=== PATIENT | female | born 1975 | race African-American/Black ===

== ENCOUNTER 2016-08-03 18:54 | Emergency (ER) | payer OTHER ==
[~2016-08-03] VITALS: Ht 142.2 cm; Wt 88.0 kg
[2016-08-03 20:38] LABS: ADD MIUA? YES; BILIRUBIN NEGATIVE; BLOOD MODERATE; COLOR YELLOW ((YELLOW)); GLUCOSE (STRIP) NEGATIVE; KETONES NEGATIVE; LEUKOCYTES SMALL; NITRITE NEGATIVE; PROTEIN (STRIP) NEGATIVE; SPECIFIC GRAVITY 1.002 (1.000-1.030); UROBILINOGEN 0.2 MG/DL (0.2-1.0)
[2016-08-03 20:40] LABS: BACTERIA RARE /HPF; EPITHELIAL CELLS 2+ /HPF; MUCUS NONE SEEN /LPF; RED BLOOD CELLS 0-5 /HPF (0-5); WHITE BLOOD CELLS 0-5 /HPF (0-5)
[2016-08-03 20:51] LABS: EOSINOPHIL (%) 2.3 % (0-5); EOSINOPHIL COUNT 0.2 K/uL (0-0.3); HEMATOCRIT 30.8 % (36.0-46.0); IMMATURE GRANULOCYTE (%) 0.3 % (0.0-0.7); LYMPHOCYTE COUNT 1.6 K/uL (1.0-2.8); MCH 28.2 PG (29.0-34.0); MCHC 33.1 G/DL (30.0-36.0); MCV 85.1 FL (83-99); MEAN PLAT.VOLUME 9.3 uM^3 (9.5-12.4); MONOCYTE (%) 9.9 % (3-12); MONOCYTE COUNT 0.8 K/uL (0-0.8); NEUTROPHIL (%) 65.5 % (45-76); PLATELET COUNT 195 K/uL (156-360); RBC DIS.WIDTH-CV 14.6 % (11.8-14.6); RBC DIS.WIDTH-SD 45.3 % (39-53); RED BLOOD COUNT 3.62 M/uL (3.80-5.20); WHITE BLOOD COUNT 7.6 K/uL (4.1-10.2)
[2016-08-03 20:57] LABS: CHLORIDE 113 mEq/L (99-109); POTASSIUM 3.7 mEq/L (3.7-5.4); SODIUM 137 mEq/L (136-147)
[2016-08-03 21:00] LABS: GLUCOSE 85 mg/dL (70-99)
[2016-08-03 21:02] LABS: TOTAL BILIRUBIN 0.2 mg/dL (0.0-1.0)
[2016-08-03 21:03] LABS: ALKALINE PHOSPHATASE 87 IU/L (3-129); GFR ESTIMATE (CALCULATED) 30 mL/min/
[2016-08-03 21:04] LABS: UREA NITROGEN (BUN) 18 mg/dL (9-23)
[2016-08-03 21:08] LABS: ANION GAP 11 MEQ/L (2-14)
[2016-08-03 21:26] LABS: INTERNAL CONTROL VALID? YES; MONOSPOT (MONONUCLEOSIS SEROL) NEGATIVE
[2016-08-03] MEDS ORDERED: ZOFRAN ODT8 MG PO (22:05)
[2016-08-03 22:53] VITALS: BP 119/62
== END 2016-08-03 23:20 | disposition home or self-care (01) ==
LOC: EME → EDBD 18:54 → EME 18:54
PROVIDERS: Emergency Medicine
DX: R11.2 Nausea with vomiting, unspecified (principal); K85.90 Acute pancreatitis without necrosis or infection, unspecified; R53.1 Weakness; Z94.0 Kidney transplant status; F17.200 Nicotine dependence, unspecified, uncomplicated; Z71.6 Tobacco abuse counseling
CPT/HCPCS: 80053; 81003; 83605; 83690; 85025; 86308; 87040; 99281; 99285; J2405; J7030

== ENCOUNTER 2016-10-03 14:53 | Emergency (ER) | payer OTHER ==
[~2016-10-03] VITALS: Ht 142.2 cm; Wt 84.3 kg
[~2016-10-03 14:53] MED LIST: ZOFRAN ODT8 MG PO
[2016-10-03 16:07] LABS: EOSINOPHIL COUNT 0.2 K/uL (0-0.3); HEMATOCRIT 31.3 % (36.0-46.0); IMMATURE GRANULOCYTE (%) 0.3 % (0.0-0.7); INSTRUMENT ABS NEUTROPHIL CT 3.8 K/uL; LYMPHOCYTE COUNT 1.3 K/uL (1.0-2.8); MCH 28.3 PG (29.0-34.0); MCHC 33.5 G/DL (30.0-36.0); MCV 84.4 FL (83-99); MEAN PLAT.VOLUME 10.3 uM^3 (9.5-12.4); MONOCYTE (%) 10.6 % (3-12); MONOCYTE COUNT 0.6 K/uL (0-0.8); NEUTROPHIL (%) 62.9 % (45-76); NEUTROPHIL COUNT 3.8 K/uL (1.8-6.4); PLATELET COUNT 167 K/uL (156-360); RBC DIS.WIDTH-CV 14.7 % (11.8-14.6); RBC DIS.WIDTH-SD 45.1 % (39-53); RED BLOOD COUNT 3.71 M/uL (3.80-5.20)
[2016-10-03 16:16] LABS: PTT 34.5 (25-32)
[2016-10-03 16:17] LABS: INTER. NORMALIZED RATIO 1.7; PROTHROMBIN TIME 17.2 (9.2-11.2)
[2016-10-03 16:23] LABS: CHLORIDE 112 mEq/L (99-109); POTASSIUM 4.1 mEq/L (3.7-5.4); SODIUM 137 mEq/L (136-147)
[2016-10-03 16:26] LABS: GLUCOSE 91 mg/dL (70-99)
[2016-10-03 16:27] LABS: ANION GAP 7 MEQ/L (2-14); TOTAL BILIRUBIN 0.2 mg/dL (0.0-1.0)
[2016-10-03 16:29] LABS: ALKALINE PHOSPHATASE 73 IU/L (3-129); GFR ESTIMATE (CALCULATED) 27 mL/min/
[2016-10-03 16:30] LABS: UREA NITROGEN (BUN) 14 mg/dL (9-23)
[2016-10-03 16:31] LABS: DIRECT BILIRUBIN 0.1 mg/dL (0.0-0.3)
[2016-10-03 17:07] LABS: QUANTITATIVE HCG < 4.0 MIU/ML
[2016-10-03 21:45] VITALS: BP 127/87
== END 2016-10-03 22:15 | disposition home or self-care (01) ==
LOC: EME 14:53
PROVIDERS: Emergency Medicine
DX: R10.31 Right lower quadrant pain (principal); M79.604 Pain in right leg; I12.9 Hypertensive chronic kidney disease with stage 1 through stage 4 chronic kidney disease, or unspecified chronic kidney disease; N18.9 Chronic kidney disease, unspecified; Z94.0 Kidney transplant status; E78.5 Hyperlipidemia, unspecified; Z86.718 Personal history of other venous thrombosis and embolism; Z79.01 Long term (current) use of anticoagulants; F17.200 Nicotine dependence, unspecified, uncomplicated
CPT/HCPCS: 74176; 80048; 80076; 84702; 85025; 85610; 85730; 93971; 99281; 99285; J2405; J7030

== ENCOUNTER 2017-01-12 08:16 | Inpatient (IN) | payer OTHER ==
[~2017-01-12] VITALS: Ht 142.2 cm; Wt 86.0 kg
[2017-01-12 08:53] LABS: EOSINOPHIL (%) 1.1 % (0-5); EOSINOPHIL COUNT 0.1 K/uL (0-0.3); HEMATOCRIT 33.6 % (36.0-46.0); IMMATURE GRANULOCYTE (%) 0.4 % (0.0-0.7); IMMATURE GRANULOCYTE COUNT 0.1 K/uL; INSTRUMENT ABS NEUTROPHIL CT 9.8 K/uL; LYMPHOCYTE COUNT 0.6 K/uL (1.0-2.8); MCH 28.6 PG (29.0-34.0); MCHC 33.3 G/DL (30.0-36.0); MCV 85.9 FL (83-99); MEAN PLAT.VOLUME 9.4 uM^3 (9.5-12.4); MONOCYTE (%) 8.2 % (3-12); MONOCYTE COUNT 0.9 K/uL (0-0.8); NEUTROPHIL (%) 85.1 % (45-76); NEUTROPHIL COUNT 9.8 K/uL (1.8-6.4); PLATELET COUNT 179 K/uL (156-360); RBC DIS.WIDTH-CV 14.2 % (11.8-14.6); RBC DIS.WIDTH-SD 44.7 % (39-53); RED BLOOD COUNT 3.91 M/uL (3.80-5.20); WHITE BLOOD COUNT 11.5 K/uL (4.1-10.2)
[2017-01-12 09:05] LABS: CHLORIDE 113 mEq/L (99-109); POTASSIUM 3.7 mEq/L (3.7-5.4); SODIUM 138 mEq/L (136-147)
[2017-01-12 09:07] LABS: GLUCOSE 123 mg/dL (70-99)
[2017-01-12 09:08] LABS: ANION GAP 11 MEQ/L (2-14)
[2017-01-12 09:11] LABS: GFR ESTIMATE (CALCULATED) 27 mL/min/; UREA NITROGEN (BUN) 12 mg/dL (9-23)
[2017-01-12] MEDS ORDERED: ENVARSUS XR1 MG PO ×2 (10:03→10:04)
[2017-01-12] MEDS ORDERED: PEPCID20 MG PO (10:03)
[2017-01-12] MEDS ORDERED: PRILOSEC20 MG PO (10:05)
[2017-01-12] MEDS ORDERED: CELLCEPT250 MG PO ×2 (10:05)
[2017-01-12] MEDS ORDERED: LAMICTAL25 MG PO (10:06)
[2017-01-12] MEDS ORDERED: REMERON30 M2 PO (10:07)
[2017-01-12] MEDS ORDERED: KEFLEX250 MG PO (10:07)
[2017-01-12] MEDS ORDERED: NEURONTIN300 MG PO (10:07)
[2017-01-12] MEDS ORDERED: COUMADIN1 MG PO (10:08)
[2017-01-12] MEDS ORDERED: COUMADIN5 MG PO (10:08)
[2017-01-12] MEDS ORDERED: ROCALTROL0.25 MCG PO ×2 (10:11→10:13)
[2017-01-12] MEDS ORDERED: RAYOS5 MG PO (10:13)
[2017-01-12] MEDS ORDERED: CARDIZEM CD,CA120 MG PO (10:13)
[2017-01-12] MEDS ORDERED: RISPERDAL0.5 MG PO (10:14)
[2017-01-12] MEDS ORDERED: ZOCOR20 MG PO (10:16)
[2017-01-12 11:02] LABS: LIPASE 30 U/L (1.0-51.0)
[2017-01-12 11:08] VITALS: BP 127/71
[2017-01-12 11:14] LABS: ADD MIUA? YES; BILIRUBIN NEGATIVE; BLOOD MODERATE; COLOR STRAW ((YELLOW)); GLUCOSE (STRIP) NEGATIVE; KETONES NEGATIVE; LEUKOCYTES MODERATE; NITRITE NEGATIVE; PROTEIN (STRIP) 30; SPECIFIC GRAVITY 1.005 (1.000-1.030); UROBILINOGEN 0.2 MG/DL (0.2-1.0)
[2017-01-12 11:16] LABS: BACTERIA RARE /HPF; EPITHELIAL CELLS RARE /HPF; MUCUS TRACE /LPF; RED BLOOD CELLS 0-5 /HPF (0-5); WHITE BLOOD CELLS 20-30 /HPF (0-5)
[2017-01-12 11:27] VITALS: BP 127/71
[2017-01-12 11:55] LABS: INTER. NORMALIZED RATIO 1.4
[2017-01-12 12:08] VITALS: BP 138/70
[2017-01-12 15:06] LABS: C DIFF TOXIN NEGATIVE (NEGATIVE)
[2017-01-12 15:08] LABS: PROBE CHECK PASS; SPECIMEN PROCESSING CONTROL PASS
[2017-01-12 16:33] VITALS: BP 104/55
[2017-01-12 18:14] VITALS: BP 105/63
[2017-01-13] VITALS (7 sets, daily range): BP systolic 92–126; BP diastolic 51–81
[2017-01-13 06:52] LABS: INTER. NORMALIZED RATIO 1.4; PROTHROMBIN TIME 15.3 SEC (10.2-12.9)
[2017-01-13 07:13] LABS: ALKALINE PHOSPHATASE 55 IU/L (3-129); ANION GAP 12 MEQ/L (2-14); CHLORIDE 115 MEQ/L (99-109); GFR ESTIMATE (CALCULATED) 29 mL/min/; POTASSIUM 3.9 MEQ/L (3.7-5.4); SAMPLE HEMOLYSIS CHECK 1; SAMPLE ICTERIC CHECK 0; SAMPLE LIPEMIA CHECK 0; SODIUM 136 MEQ/L (136-147); TOTAL BILIRUBIN 0.4 MG/DL (0.0-1.0); UREA NITROGEN (BUN) 13 mg/dL (9-23)
[2017-01-13 07:14] LABS: GLUCOSE 80 mg/dL (70-99)
[2017-01-13 07:27] LABS: URIC ACID 5.8 mg/dL (3.1-9.2)
[2017-01-13 08:04] LABS: BICARBONATE 13.6 mEq/L (22-26); COMMENTS - BLOOD GASES A+C+; METHEMOGLOBIN 1.4 % (0-1.5); PCO2 23 mm Hg (35-45); PO2 87 mm Hg (80-100); SITE RR; TOTAL RESP RATE 18 resp/min; pH 7.38 (7.35-7.45)
[2017-01-13 14:11] LABS: EOSINOPHIL (%) 0.3 % (0-5); HEMATOCRIT 27.1 % (36.0-46.0); IMMATURE GRANULOCYTE (%) 0.5 % (0.0-0.7); IMMATURE GRANULOCYTE COUNT 0.1 K/uL; INSTRUMENT ABS NEUTROPHIL CT 8.5 K/uL; LYMPHOCYTE COUNT 0.6 K/uL (1.0-2.8); MCH 30.5 PG (29.0-34.0); MCHC 34.7 G/DL (30.0-36.0); MEAN PLAT.VOLUME 9.5 uM^3 (9.5-12.4); MONOCYTE (%) 9.7 % (3-12); NEUTROPHIL (%) 83.3 % (45-76); NEUTROPHIL COUNT 8.5 K/uL (1.8-6.4); PLATELET COUNT 137 K/uL (156-360); RBC DIS.WIDTH-CV 14.7 % (11.8-14.6); RBC DIS.WIDTH-SD 47.8 % (39-53); WHITE BLOOD COUNT 10.2 K/uL (4.1-10.2)
[2017-01-13 14:13] LABS: RED BLOOD COUNT 3.08 M/uL (3.80-5.20)
[2017-01-13 14:45] LABS: ANION GAP 8 MEQ/L (2-14); CHLORIDE 116 MEQ/L (99-109); GFR ESTIMATE (CALCULATED) 32 mL/min/; POTASSIUM 3.9 MEQ/L (3.7-5.4); SAMPLE HEMOLYSIS CHECK 0; SAMPLE ICTERIC CHECK 0; SAMPLE LIPEMIA CHECK 0; SODIUM 140 MEQ/L (136-147); UREA NITROGEN (BUN) 14 mg/dL (9-23)
[2017-01-13 14:49] LABS: GLUCOSE 109 mg/dL (70-99)
[2017-01-14 03:51] VITALS: BP 120/64
[2017-01-14 06:22] LABS: INTER. NORMALIZED RATIO 1.8; PROTHROMBIN TIME 20.2 SEC (10.2-12.9)
[2017-01-14 06:37] LABS: ANION GAP 8 MEQ/L (2-14); CHLORIDE 116 MEQ/L (99-109); GFR ESTIMATE (CALCULATED) 29 mL/min/; GLUCOSE 97 mg/dL (70-99); POTASSIUM 3.5 MEQ/L (3.7-5.4); SAMPLE HEMOLYSIS CHECK 0; SAMPLE ICTERIC CHECK 0; SAMPLE LIPEMIA CHECK 0; SODIUM 142 MEQ/L (136-147); UREA NITROGEN (BUN) 16 mg/dL (9-23)
[2017-01-14 08:00] LABS: INTACT PARATHYROID HORMONE 158 pg/mL (10-69)
[2017-01-14 08:14] VITALS: BP 121/83
[2017-01-14 10:45] LABS: HEMATOCRIT 27.5 % (36.0-46.0); MCHC 33.1 G/DL (30.0-36.0); MCV 87.6 FL (83-99); MEAN PLAT.VOLUME 9.5 uM^3 (9.5-12.4); PLATELET COUNT 146 K/uL (156-360); RBC DIS.WIDTH-CV 14.9 % (11.8-14.6); RED BLOOD COUNT 3.14 M/uL (3.80-5.20); WHITE BLOOD COUNT 7.5 K/uL (4.1-10.2)
[2017-01-14 12:33] VITALS: BP 125/69
[2017-01-14 16:48] LABS: IRON 14 MCG/DL (35-150)
[2017-01-14 17:06] VITALS: BP 130/90
[2017-01-14 20:12] VITALS: BP 144/96
[2017-01-15 00:20] VITALS: BP 142/77
[2017-01-15 04:40] VITALS: BP 144/96
[2017-01-15 06:40] LABS: INTER. NORMALIZED RATIO 1.7
[2017-01-15 06:58] LABS: ANION GAP 11 MEQ/L (2-14); CHLORIDE 111 MEQ/L (99-109); GFR ESTIMATE (CALCULATED) 30 mL/min/; GLUCOSE 79 mg/dL (70-99); POTASSIUM 3.7 MEQ/L (3.7-5.4); SAMPLE HEMOLYSIS CHECK 0; SAMPLE ICTERIC CHECK 0; SAMPLE LIPEMIA CHECK 0; SODIUM 143 MEQ/L (136-147); UREA NITROGEN (BUN) 21 mg/dL (9-23)
[2017-01-15 07:37] VITALS: BP 139/90
== END 2017-01-15 12:55 | disposition home or self-care (01) | DRG 690 ==
LOC: EME 08:16 → EDOF 09:47 → 5EAST 09:47 → ENRESERV 09:57 → 5EAST 11:49
PROVIDERS: Emergency Medicine; Internal Medicine; Internal Medicine Nephrology
DX: N39.0 Urinary tract infection, site not specified (principal); E87.2 Acidosis; F17.210 Nicotine dependence, cigarettes, uncomplicated; E55.9 Vitamin D deficiency, unspecified; E66.9 Obesity, unspecified; I82.599 Chronic embolism and thrombosis of other specified deep vein of unspecified lower extremity; I12.9 Hypertensive chronic kidney disease with stage 1 through stage 4 chronic kidney disease, or unspecified chronic kidney disease; N18.3 Chronic kidney disease, stage 3 (moderate); Z94.0 Kidney transplant status; D63.1 Anemia in chronic kidney disease; D50.9 Iron deficiency anemia, unspecified; R91.1 Solitary pulmonary nodule; Z68.41 Body mass index [BMI] 40.0-44.9, adult; Z79.01 Long term (current) use of anticoagulants; E86.0 Dehydration; E78.2 Mixed hyperlipidemia; M17.11 Unilateral primary osteoarthritis, right knee; Z87.440 Personal history of urinary (tract) infections; K86.1 Other chronic pancreatitis
CPT/HCPCS: 36600; 76776; 80048; 80048 91; 80053; 80069; 81003; 82306; 82436; 82803; 83540; 83605; 83690; 83935; 83970; 84133; 84300; 84466; 84550; 85025; 85027; 85610; 87040; 87077; 87086; 87186; 87493; 87506; 99281; 99284; G0378; J2405; J7030; J7070; J7512; J7517

== ENCOUNTER 2017-04-26 13:00 | Inpatient (IN) | payer OTHER ==
[~2017-04-26] VITALS: Ht 142.2 cm; Wt 88.0 kg
[~2017-04-26 13:00] MED LIST changes: +CARDIZEM CD,CA120 MG PO; +CELLCEPT250 MG PO; +COUMADIN1 MG PO; +COUMADIN5 MG PO; +ENVARSUS XR1 MG PO; +KEFLEX250 MG PO; +LAMICTAL25 MG PO; +NEURONTIN300 MG PO; +PEPCID20 MG PO; +PRILOSEC20 MG PO; +RAYOS5 MG PO; +REMERON30 M2 PO; +RISPERDAL0.5 MG PO; +ROCALTROL0.25 MCG PO; +ZOCOR20 MG PO
[2017-04-26 13:46] LABS: HEMATOCRIT 35.1 % (36.0-46.0); HEMOGLOBIN 11.9 G/DL (11.9-15.5); MCH 29.8 PG (29.0-34.0); MCHC 33.9 G/DL (30.0-36.0); PLATELET COUNT 215 K/uL (156-360); RBC DIS.WIDTH-CV 14.2 % (11.8-14.6); RBC DIS.WIDTH-SD 45.5 % (39-53); RED BLOOD COUNT 3.99 M/uL (3.80-5.20); WHITE BLOOD COUNT 6.3 K/uL (4.1-10.2)
[2017-04-26 13:56] LABS: CHLORIDE 116 mEq/L (99-109); POTASSIUM 4.8 mEq/L (3.7-5.4); SODIUM 135 mEq/L (136-147)
[2017-04-26 13:58] LABS: GLUCOSE 110 mg/dL (70-99)
[2017-04-26 14:02] LABS: CREATININE 4.5 mg/dL (0.6-1.3); GFR ESTIMATE (CALCULATED) 14 mL/min/
[2017-04-26 14:03] LABS: UREA NITROGEN (BUN) 29 mg/dL (9-23)
[2017-04-26 16:05] LABS: APPEARANCE SL.HAZY ((CLEAR)); BILIRUBIN NEGATIVE; BLOOD SMALL; COLOR YELLOW ((YELLOW)); GLUCOSE (STRIP) NEGATIVE; KETONES NEGATIVE; LEUKOCYTES NEGATIVE; NITRITE NEGATIVE; PROTEIN (STRIP) 100; SPECIFIC GRAVITY 1.013 (1.000-1.030); UROBILINOGEN 0.2 MG/DL (0.2-1.0)
[2017-04-26 16:17] LABS: BACTERIA RARE /HPF; EPITHELIAL CELLS RARE /HPF; HYALINE CASTS 0-5 /LPF; MUCUS TRACE /LPF; RED BLOOD CELLS 0-5 /HPF (0-5); UCUL ADDED? NO; WHITE BLOOD CELLS 0-5 /HPF (0-5)
[2017-04-26] MEDS ORDERED: GABAPENTIN400 MG PO (18:32)
[2017-04-26] MEDS ORDERED: AMOXICILLIN500 MG PO (18:41)
[2017-04-26] MEDS ORDERED: BIAXIN500 MG PO (18:47)
[2017-04-26] MEDS ORDERED: RISPERDAL1 MG PO (18:48)
[2017-04-26] MEDS ORDERED: LAMICTAL200 MG PO (18:49)
[2017-04-26] MEDS ORDERED: TRAZODONE HCL50 MG PO (18:50)
[2017-04-26] MEDS ORDERED: OMEPRAZOLE20 M2 PO (18:51)
[2017-04-26] MEDS ORDERED: NABI650T PO (18:52)
[2017-04-26] MEDS ORDERED: TACROLIMUS ANH0.5 MG PO (18:58)
[2017-04-27 00:19] VITALS: BP 122/82
[2017-04-27 06:59] LABS: INTER. NORMALIZED RATIO 1.9
[2017-04-27 08:07] VITALS: BP 110/65
[2017-04-27 18:37] LABS: CHLORIDE 117 MEQ/L (99-109); GLUCOSE 91 mg/dL (70-99); POTASSIUM 4.1 MEQ/L (3.7-5.4); SODIUM 135 MEQ/L (136-147); UREA NITROGEN (BUN) 22 mg/dL (9-23)
[2017-04-27 18:38] LABS: CREATININE 3.6 MG/DL (0.6-1.3); GFR ESTIMATE (CALCULATED) 18 mL/min/
[2017-04-27 20:00] VITALS: BP 125/75
[2017-04-27 23:34] VITALS: BP 128/78
[2017-04-28 07:25] LABS: HEMATOCRIT 29.4 % (36.0-46.0); MCH 29.4 PG (29.0-34.0); MCHC 33.3 G/DL (30.0-36.0); MCV 88.3 FL (83-99); RBC DIS.WIDTH-CV 14.3 % (11.8-14.6); RBC DIS.WIDTH-SD 45.6 % (39-53); RED BLOOD COUNT 3.33 M/uL (3.80-5.20)
[2017-04-28 07:26] LABS: HEMOGLOBIN 9.8 G/DL (11.9-15.5)
[2017-04-28 07:44] LABS: ALBUMIN 3.1 G/DL (3.2-4.8); ALBUMIN 3.2 G/DL (3.2-4.8); CHLORIDE 117 MEQ/L (99-109); CHLORIDE 118 MEQ/L (99-109); CREATININE 3.5 MG/DL (0.6-1.3); GFR ESTIMATE (CALCULATED) 18 mL/min/; GLUCOSE 77 mg/dL (70-99); PHOSPHORUS 3.8 mg/dL (2.5-4.9); PHOSPHORUS 3.9 mg/dL (2.5-4.9); POTASSIUM 4.1 MEQ/L (3.7-5.4); POTASSIUM 4.2 MEQ/L (3.7-5.4); SODIUM 141 MEQ/L (136-147); UREA NITROGEN (BUN) 22 mg/dL (9-23)
[2017-04-28 07:46] LABS: SODIUM 142 MEQ/L (136-147)
[2017-04-28 07:47] LABS: PLAT.SUFFICIENCY DECREASED; PLATELET CLUMPS PRESENT - PLATELET COUNTS APPEARS DECREASED
[2017-04-28 07:55] LABS: PLATELET COUNT UNABLE TO REPORT K/uL (156-360)
[2017-04-28 08:01] VITALS: BP 158/90
[2017-04-28 16:21] VITALS: BP 137/85
[2017-04-28 17:37] LABS: INTER. NORMALIZED RATIO 1.8
== END 2017-04-28 19:55 | disposition home or self-care (01) | DRG 683 ==
LOC: EME 13:00 → 5SOUTH 17:44 → EDOF 17:44 → ENRESERV 18:10 → 5SOUTH 22:10
PROVIDERS: Emergency Medicine Emergency Medical Services; Internal Medicine; Internal Medicine Gastroenterology
DX: N17.9 Acute kidney failure, unspecified (principal); K52.1 Toxic gastroenteritis and colitis; T36.95XA Adverse effect of unspecified systemic antibiotic, initial encounter; E86.0 Dehydration; E87.2 Acidosis; I12.0 Hypertensive chronic kidney disease with stage 5 chronic kidney disease or end stage renal disease; T86.12 Kidney transplant failure; Y83.0 Surgical operation with transplant of whole organ as the cause of abnormal reaction of the patient, or of later complication, without mention of misadventure at the time of the procedure; N18.4 Chronic kidney disease, stage 4 (severe); N39.0 Urinary tract infection, site not specified; N25.81 Secondary hyperparathyroidism of renal origin; D63.1 Anemia in chronic kidney disease; M17.11 Unilateral primary osteoarthritis, right knee; K90.9 Intestinal malabsorption, unspecified; K29.70 Gastritis, unspecified, without bleeding; D25.9 Leiomyoma of uterus, unspecified; K86.1 Other chronic pancreatitis; E78.5 Hyperlipidemia, unspecified; F31.9 Bipolar disorder, unspecified; F41.9 Anxiety disorder, unspecified; F17.210 Nicotine dependence, cigarettes, uncomplicated; Z82.49 Family history of ischemic heart disease and other diseases of the circulatory system; Z83.3 Family history of diabetes mellitus; Z86.718 Personal history of other venous thrombosis and embolism; Z87.440 Personal history of urinary (tract) infections
CPT/HCPCS: 74176; 76776; 80048; 80069; 81003; 85027; 85610; 87177; 87493; 87506; 99281; 99285; J0696; J0780; J2270; J2405; J7030; J7040; J7507; J7517

== ENCOUNTER 2017-10-31 11:29 | Observation (INO) | payer OTHER ==
[~2017-10-31] VITALS: Ht 142.2 cm; Wt 90.4 kg
[~2017-10-31 11:29] MED LIST changes: +AMOXICILLIN500 MG PO; +BIAXIN500 MG PO; +GABAPENTIN400 MG PO; +LAMICTAL200 MG PO; +NABI650T PO; +OMEPRAZOLE20 M2 PO; +RISPERDAL1 MG PO; +TACROLIMUS ANH0.5 MG PO; +TRAZODONE HCL50 MG PO
[2017-10-31 12:16] LABS: BASOPHIL (%) 0.2 % (0-1); EOSINOPHIL (%) 1.5 % (0-5); EOSINOPHIL COUNT 0.1 K/uL (0-0.3); HEMATOCRIT 32.7 % (36.0-46.0); IMMATURE GRANULOCYTE (%) 0.3 % (0.0-0.7); LYMPHOCYTE (%) 15.5 % (15-42); LYMPHOCYTE COUNT 1.4 K/uL (1.0-2.8); MCH 30.1 PG (29.0-34.0); MCHC 33.6 G/DL (30.0-36.0); MCV 89.6 FL (83-99); MONOCYTE (%) 8.7 % (3-12); MONOCYTE COUNT 0.8 K/uL (0-0.8); NEUTROPHIL (%) 73.8 % (45-76); NEUTROPHIL COUNT 6.7 K/uL (1.8-6.4); PLATELET COUNT 212 K/uL (156-360); RBC DIS.WIDTH-CV 14.4 % (11.8-14.6); RBC DIS.WIDTH-SD 46.8 % (39-53); RED BLOOD COUNT 3.65 M/uL (3.80-5.20); WHITE BLOOD COUNT 9.1 K/uL (4.1-10.2)
[2017-10-31 12:25] LABS: CHLORIDE 116 mEq/L (99-109)
[2017-10-31 12:26] LABS: POTASSIUM 3.8 mEq/L (3.7-5.4); SODIUM 139 mEq/L (136-147)
[2017-10-31 12:30] LABS: TOTAL BILIRUBIN 0.2 mg/dL (0.0-1.0)
[2017-10-31 12:45] LABS: ALKALINE PHOSPHATASE 83 IU/L (3-129); CREATININE 2.8 mg/dL (0.6-1.3); GFR ESTIMATE (CALCULATED) 24 mL/min/
[2017-10-31 12:46] LABS: UREA NITROGEN (BUN) 27 mg/dL (9-23)
[2017-10-31 12:47] LABS: AST (GOT) 15 IU/L (2-34)
[2017-10-31 12:48] LABS: ALT (GPT) 8 IU/L (3-49); LIPASE 53 U/L (1.0-51.0)
[2017-10-31 12:51] LABS: ALBUMIN 3.7 g/dL (3.2-4.8); GLUCOSE 108 mg/dL (70-99)
[2017-10-31 14:31] LABS: APPEARANCE CLEAR ((CLEAR)); BILIRUBIN NEGATIVE; BLOOD SMALL; COLOR STRAW ((YELLOW)); GLUCOSE (STRIP) NEGATIVE; KETONES NEGATIVE; LEUKOCYTES NEGATIVE; NITRITE NEGATIVE; PROTEIN (STRIP) 100; SPECIFIC GRAVITY 1.012 (1.000-1.030); UROBILINOGEN 0.2 MG/DL (0.2-1.0)
[2017-10-31 14:36] LABS: BACTERIA NONE SEEN /HPF; EPITHELIAL CELLS RARE /HPF; MUCUS TRACE /LPF; WHITE BLOOD CELLS 0-5 /HPF (0-5)
[2017-10-31 16:40] VITALS: BP 145/67
[2017-10-31] MEDS ORDERED: MYCOPHENOLATE250 MG PO (18:24)
[2017-10-31] MEDS ORDERED: LAMOTRIGINE200 MG PO (18:24)
[2017-10-31] MEDS ORDERED: PREDNISONE5 MG PO (18:24)
[2017-10-31] MEDS ORDERED: REMERON15 M2 PO (18:26)
[2017-10-31] MEDS ORDERED: VRAYLAR3 MG PO (18:26)
[2017-10-31] MEDS ORDERED: RANITIDINE HCL300 MG PO (18:27)
[2017-10-31 18:36] LABS: CHLORIDE 111 MEQ/L (99-109); CREATININE 2.1 MG/DL (0.6-1.3); GFR ESTIMATE (CALCULATED) 33 mL/min/; GLUCOSE 80 mg/dL (70-99); POTASSIUM 3.7 MEQ/L (3.7-5.4); SODIUM 140 MEQ/L (136-147); UREA NITROGEN (BUN) 21 mg/dL (9-23)
[2017-10-31 20:33] LABS: INTER. NORMALIZED RATIO 3.1
[2017-10-31 21:52] VITALS: BP 136/66
[2017-11-01] MEDS ORDERED: TACROLIMUS ANHYD1 MG PO (01:55)
[2017-11-01 04:31] VITALS: BP 127/74
[2017-11-01 06:02] LABS: INTER. NORMALIZED RATIO 3.1
[2017-11-01 06:20] LABS: CHLORIDE 114 MEQ/L (99-109); CREATININE 2.3 MG/DL (0.6-1.3); GFR ESTIMATE (CALCULATED) 30 mL/min/; GLUCOSE 77 mg/dL (70-99); POTASSIUM 3.6 MEQ/L (3.7-5.4); SODIUM 139 MEQ/L (136-147); UREA NITROGEN (BUN) 21 mg/dL (9-23)
[2017-11-01 08:45] VITALS: BP 129/76
[2017-11-01 11:29] VITALS: BP 150/79
== END 2017-11-01 14:06 | disposition home or self-care (01) ==
LOC: EME 11:29 → EDOF 15:09 → 4SOUTH 15:09 → ENRESERV 15:12 → 4SOUTH 16:35 → ENPENDDIS 11-01 10:08 → 4SOUTH 11-01 14:06
PROVIDERS: Emergency Medicine; Hospitalist; Physician Assistant
DX: R10.13 Epigastric pain (principal); Z94.0 Kidney transplant status; R11.2 Nausea with vomiting, unspecified; E86.0 Dehydration; I12.9 Hypertensive chronic kidney disease with stage 1 through stage 4 chronic kidney disease, or unspecified chronic kidney disease; N18.4 Chronic kidney disease, stage 4 (severe); Z86.19 Personal history of other infectious and parasitic diseases; E87.2 Acidosis; Z86.718 Personal history of other venous thrombosis and embolism; Z79.01 Long term (current) use of anticoagulants; F17.200 Nicotine dependence, unspecified, uncomplicated
CPT/HCPCS: 74176; 80048; 80048 91; 80053; 81003; 83690; 85025; 85610; 87493; 99281; 99285; G0378; J2270; J2405; J7030; J7507; J7517